=== PATIENT | male | born 1995 | race Caucasian/White ===

== ENCOUNTER 2018-03-16 19:15 | Day surgery (SDC) | payer BC ==
[2018-03-16] MEDS ORDERED: NS(*) 0.9% 1000 ML BAG 1,000 ML IV ONE (19:31)
[2018-03-16 19:49] LABS: PLATELET COUNT, AUTOMATED 222 K/uL (150-450)
--- NOTE | 2018-03-16 19:53 | ER Report ---
History and Physical Time Seen By MD: 19:27 Hx. of Stated Complaint: lower rt abdominal pain for a couple hours. started suddenly HPI/ROS CHIEF COMPLAINT: Abdominal pain HISTORY OF PRESENT ILLNESS: 22-year-old male patient presents to emergency room with complaint of abdominal pain. Patient states that he has been having pain for a few hours. He states pain is centered over the right lower quadrant. He states that standing up seems to make the pain worse. He states that he has not had any nausea, vomiting or diarrhea. Patient states he last ate about 2:00 this afternoon. Patient states he is not taking anything for the pain. He denies having any fevers or chills. Patient states he is had anything like this in the past. REVIEW OF SYSTEMS: Respiratory: No cough, no dyspnea. Cardiovascular: No chest pain, no palpitations. Gastrointestinal: As noted above Musculoskeletal: No back pain. Allergies: Coded Allergies: No Known Drug Allergies (Unverified , 03/16/18) Home Meds No Active Prescriptions or Reported Meds Past Medical/Surgical History Patient has a past medical history of left arm fracture, social alcohol use. Patient has surgical history of wisdom teeth removed. Reviewed Nurses Notes: Yes Hx Substance Use Disorder: No Hx Alcohol Use: Yes (social) Constitutional Vital Sign - Last 24 Hours 03/16/18 03/16/18 03/16/18 03/16/18 19:20 19:25 19:30 19:45 Temp 98.1 Pulse 64 72 66 Resp 14 B/P (MAP) 149/105 149/105 (120) 148/104 (119) Pulse Ox 95 99 97 O2 Delivery Room Air 03/16/18 20:00 Pulse 63 B/P (MAP) 133/88 (103) Pulse Ox 97 Physical Exam General Appearance: The patient is alert, has no immediate need for airway protection and no current signs of toxicity. ENT: Tympanic membranes are pearly-mcnamara, auditory canals are patent, mucus mucous membranes are moist. Respiratory: Chest is non tender, lungs are clear to auscultation. Cardiac: regular rate and rhythm Gastrointestinal: Abdomen is soft and tender in the right lower quadrant, no masses, bowel sounds normal. Musculoskeletal: Neck: Neck is supple and non tender. Extremities have full range of motion and are non tender. Skin: No rashes or lesions. DIFFERENTIAL DIAGNOSIS: After history and physical exam differential diagnosis was considered for abdominal pain including but not limited to appendicitis, cholecystitis, gastritis and urinary tract infection. Medical Decision Making Data Points Result Diagram: 03/16/18193503/16/181935 Laboratory Hematology Test 03/16/18 19:21 03/16/18 19:36 Urine Color Yellow Urine Clarity Clear Urine pH 5.0 pH (4.8-9.5) Urine Specific [place] 1.026 Urine Protein Negative mg/dL (NEGATIVE) Urine Glucose (UA) Negative mg/dL (NEGATIVE) Urine Ketones Negative mg/dL (NEGATIVE) Urine Blood Negative (NEGATIVE) Urine Nitrite Negative (NEGATIVE) Urine Bilirubin Negative (NEGATIVE) Urine Urobilinogen 2.0 mg/dL (0.2-1.9) Urine Leukocyte Esterase Negative (NEGATIVE) Urine RBC <1 /HPF (0-2/HPF) Urine WBC 1 /HPF (0-5/HPF) Urine Squamous Epithelial Cells None /LPF (</=FEW) Urine Bacteria Negative /HPF (NONE-FEW) Urine Mucus None /HPF (NONE-FEW) Red Blood Count 6.08 M/uL (4.00-5.60) Mean Corpuscular Volume 86.9 fL (80.0-96.0) Mean Corpuscular Hemoglobin 30.1 pg (26.0-33.0) Mean Corpuscular Hemoglobin Concent 34.6 g/dL (32.0-36.0) Red Cell Distribution Width 12.5 % (11.5-14.5) Mean Platelet Volume 10.0 fL (7.2-11.1) Neutrophils (%) (Auto) 76.2 % (39.4-72.5) Lymphocytes (%) (Auto) 17.1 % (17.6-49.6) Monocytes (%) (Auto) 5.1 % (4.1-12.4) Eosinophils (%) (Auto) 1.2 % (0.4-6.7) Basophils (%) (Auto) 0.4 % (0.3-1.4) Nucleated RBC Relative Count (auto) 0.1 /100WBC Neutrophils # (Auto) 12.0 K/uL (2.0-7.4) Lymphocytes # (Auto) 2.7 K/uL (1.3-3.6) Monocytes # (Auto) 0.8 K/uL (0.3-1.0) Eosinophils # (Auto) 0.2 K/uL (0.0-0.5) Basophils # (Auto) 0.1 K/uL (0.0-0.1) Nucleated RBC Absolute Count (auto) 0.01 K/uL Sodium Level 139 mmol/L (137-145) Potassium Level 3.8 mmol/L (3.5-5.0) Chloride Level 100 mmol/L (98-107) Carbon Dioxide Level 25 mmol/L (22-30) Blood Urea Nitrogen 19 mg/dl (9-21) Creatinine 0.90 mg/dl (0.66-1.25) Glomerular Filtration Rate Calc > 60.0 Random Glucose 103 mg/dl (75-110) Calcium Level 9.5 mg/dl (8.4-10.2) Total Bilirubin 0.5 mg/dl (0.2-1.3) Aspartate Amino Transf (AST/SGOT) 25 U/L (0-35) Alanine Aminotransferase (ALT/SGPT) 32 U/L (0-56) Alkaline Phosphatase 72 U/L (0-126) C-Reactive Protein < 0.5 mg/dl (<1.0) Total Protein 8.0 g/dl (6.3-8.2) Albumin 4.7 g/dl (3.5-5.0) Amylase Level 66 U/L (0-110) Lipase 53 U/L (23-300) Chemistry Test 03/16/18 19:21 03/16/18 19:36 Urine Color Yellow Urine Clarity Clear Urine pH 5.0 pH (4.8-9.5) Urine Specific [place] 1.026 Urine Protein Negative mg/dL (NEGATIVE) Urine Glucose (UA) Negative mg/dL (NEGATIVE) Urine Ketones Negative mg/dL (NEGATIVE) Urine Blood Negative (NEGATIVE) Urine Nitrite Negative (NEGATIVE) Urine Bilirubin Negative (NEGATIVE) Urine Urobilinogen 2.0 mg/dL (0.2-1.9) Urine Leukocyte Esterase Negative (NEGATIVE) Urine RBC <1 /HPF (0-2/HPF) Urine WBC 1 /HPF (0-5/HPF) Urine Squamous Epithelial Cells None /LPF (</=FEW) Urine Bacteria Negative /HPF (NONE-FEW) Urine Mucus None /HPF (NONE-FEW) White Blood Count 15.8 k/uL (4.5-11.0) Red Blood Count 6.08 M/uL (4.00-5.60) Hemoglobin 18.3 g/dL (14.0-18.0) Hematocrit 52.8 % (42.0-52.0) Mean Corpuscular Volume 86.9 fL (80.0-96.0) Mean Corpuscular Hemoglobin 30.1 pg (26.0-33.0) Mean Corpuscular Hemoglobin Concent 34.6 g/dL (32.0-36.0) Red Cell Distribution Width 12.5 % (11.5-14.5) Platelet Count 222 K/uL (150-450) Mean Platelet Volume 10.0 fL (7.2-11.1) Neutrophils (%) (Auto) 76.2 % (39.4-72.5) Lymphocytes (%) (Auto) 17.1 % (17.6-49.6) Monocytes (%) (Auto) 5.1 % (4.1-12.4) Eosinophils (%) (Auto) 1.2 % (0.4-6.7) Basophils (%) (Auto) 0.4 % (0.3-1.4) Nucleated RBC Relative Count (auto) 0.1 /100WBC Neutrophils # (Auto) 12.0 K/uL (2.0-7.4) Lymphocytes # (Auto) 2.7 K/uL (1.3-3.6) Monocytes # (Auto) 0.8 K/uL (0.3-1.0) Eosinophils # (Auto) 0.2 K/uL (0.0-0.5) Basophils # (Auto) 0.1 K/uL (0.0-0.1) Nucleated RBC Absolute Count (auto) 0.01 K/uL Glomerular Filtration Rate Calc > 60.0 Calcium Level 9.5 mg/dl (8.4-10.2) Total Bilirubin 0.5 mg/dl (0.2-1.3) Aspartate Amino Transf (AST/SGOT) 25 U/L (0-35) Alanine Aminotransferase (ALT/SGPT) 32 U/L (0-56) Alkaline Phosphatase 72 U/L (0-126) C-Reactive Protein < 0.5 mg/dl (<1.0) Total Protein 8.0 g/dl (6.3-8.2) Albumin 4.7 g/dl (3.5-5.0) Amylase Level 66 U/L (0-110) Lipase 53 U/L (23-300) Urinalysis Test 03/16/18 19:21 Urine Color Yellow Urine Clarity Clear Urine pH 5.0 pH (4.8-9.5) Urine Specific [place] 1.026 Urine Protein Negative mg/dL (NEGATIVE) Urine Glucose (UA) Negative mg/dL (NEGATIVE) Urine Ketones Negative mg/dL (NEGATIVE) Urine Blood Negative (NEGATIVE) Urine Nitrite Negative (NEGATIVE) Urine Bilirubin Negative (NEGATIVE) Urine Urobilinogen 2.0 mg/dL (0.2-1.9) Urine Leukocyte Esterase Negative (NEGATIVE) Urine RBC <1 /HPF (0-2/HPF) Urine WBC 1 /HPF (0-5/HPF) Urine Squamous Epithelial Cells None /LPF (</=FEW) Urine Bacteria Negative /HPF (NONE-FEW) Urine Mucus None /HPF (NONE-FEW) EKG/Imaging Imaging COMPUTED TOMOGRAPHY OF THE Abdomen and Pelvis with CONTRAST INDICATION: Right lower quadrant pain. TECHNIQUE: Contiguous axial 3.[address] images were obtained through the abdomen and pelvis after 75 mL Isovue-370. Coronal and sagittal reformatted images were submitted. COMPARISON: None. FINDINGS: Lung bases: Clear Liver and hepatic vasculature: No focal lesion. Gallbladder and bile ducts: Normal Spleen: Normal Pancreas: Normal Adrenals: Normal Kidneys, ureters and bladder: No stones or obstruction. Retroperitoneum and aorta: No GI tract, mesentery and peritoneum: The appendix measures approximately 9 mm in diameter with mild surrounding inflammation, especially near the appendiceal tip (series 2 image 106). The appendiceal wall is edematous. There is no perforation or abscess. The appendix extends inferiorly from the cecum from an lies just anterior to the external iliac artery. Prostate: Unremarkable Bones and soft tissues: No acute osseous abnormality. IMPRESSION: 9 mm, thick-walled appendix with stranding adjacent to the appendiceal tip. Findings are in keeping with early uncomplicated appendicitis. Results were called to Dr. DELMAR LIRIANO at 03/16/2018 8:47 PM. One of the following dose optimization techniques was utilized in the performance of this exam: Automated exposure control; adjustment of the mA and/or kV according to the patient's size; or use of an iterative reconstruction technique. Specific details can be referenced in the facility's radiology CT exam operational policy. Report Dictated By: Tae Arguello MD at 03/16/2018 8:36 PM Report E-Signed By: Tae Arguello MD at 03/16/2018 8:49 PM ED Course/Re-evaluation ED Course Patient was admitted in exam room, history and physical were obtained. Differential diagnoses were considered. On examination lungs are clear, heart is regular, abdomen is soft and tender in the right lower quadrant. Patient had p ain in the right lower quadrant with palpation of the left lower quadrant. An IV was started, patient received a liter of normal saline, a CBC, CMP, urinalysis were obtained. The labs showed a white count of 15,800 with a left shift. CT scan of the abdomen and pelvis was done which showed an acute appendicitis without perforation. I discussed the findings with the patient and his significant other. We did call and talk with the general surgeon, Dr. Monge, who came and evaluated the patient and they opted to go to surgery and remove the appendix. Dr. Monge requested that we start the patient on Levaquin and Flagyl. Those were ordered prior to surgery. Decision to Disposition Date: Mar 16, 2018 Decision to Disposition Time: 21:37 Depart Departure Latest Vital Signs Vital Signs Date Time Temp Pulse Resp B/P (MAP) Pulse Ox O2 Delivery O2 Flow Rate FiO2 03/16/18 20:00 63 133/88 (103) 97 03/16/18 19:20 98.1 14 Room Air Impression: Primary Impression: Appendicitis Condition: Condition Unchanged Disposition: ADMIT FROM ER TO OR New Scripts No Active Prescriptions or Reported Meds Problem Qualifiers Primary Impression: Appendicitis Appendicitis type: acute appendicitis Acute appendicitis type: with localized peritonitis Appendicitis gangrene presence: without gangrene Appendicitis perforation presence: without perforation Appendicitis abscess presence: without abscess Qualified Codes: K35.30 - Acute appendicitis with localized peritonitis, without perforation or gangrene DELMAR LIRIANO Mar 16, 2018 19:52
[2018-03-16] MEDS ORDERED: IOPAMIDOL 76% 75 ML INFUS BTL 75 ML ONE (20:23)
--- NOTE | 2018-03-16 20:53 | RADIOLOGY IMAGING REPORT ---
FAC[place] [facility] [place] NAME: Freddy Lei : 1995 MR: [id number] V: [id number] EXAM DATE: ORDERING PHYSICIAN: DELMAR LIRIANO TECHNOLOGIST: Location: [facility] Patient: Freddy Lei : 1995 Visit/Account:[id number] Date of Sevice: 03/16/2018 COMPUTED TOMOGRAPHY OF THE Abdomen and Pelvis with CONTRAST INDICATION: Right lower quadrant pain. TECHNIQUE: Contiguous axial 3.[address] images were obtained through the abdomen and pelvis after 75 m L Isovue-370. Coronal and sagittal reformatted images were submitted. COMPARISON: None. FINDINGS: Lung bases: Clear Liver and hepatic vasculature: No focal lesion. Gallbladder and bile ducts: Normal Spleen: Normal Pancreas: Normal Adrenals: Normal Kidneys, ureters and bladder: No stones or obstruction. Retroperitoneum and aorta: No GI tract, mesentery and peritoneum: The appendix measures approximately 9 mm in diameter with mild reese rrounding inflammation, especially near the appendiceal tip (series 2 image 106). The appendiceal wa ll is edematous. There is no perforation or abscess. The appendix extends inferiorly from the cecum from an lies just anterior to the external iliac artery. Prostate: Unremarkable Bones and soft tissues: No acute osseous abnormality. IMPRESSION: 9 mm, thick-walled appendix with stranding adjacent to the appendiceal tip. Findings are in keeping with early uncomplicated appendicitis. Results were called to Dr. DELMAR LIRIANO at 03/16/2018 8:47 PM. One of the following dose optimization techniques was utilized in the performance of this exam: Autom ated exposure control; adjustment of the mA and/or kV according to the patient's size; or use of an i terative reconstruction technique. Specific details can be referenced in the facility's radiology C T exam operational policy. Report Dictated By: Tae Arguello MD at 03/16/2018 8:36 PM Report E-Signed By: Tae Arguello MD at 03/16/2018 8:49 PM [id number]
[2018-03-16] MEDS ORDERED: metroNIDAZOLE* 500MG/100ML BAG 100 ML IVPB ONE (21:00)
[2018-03-16] MEDS ORDERED: NORMOSOL R SOLN(*) 1000 ML BAG 1,000 ML IV ONE (21:05)
[2018-03-16] MEDS ORDERED: LEVOFLOXACIN/D5W*500 MG/100 ML 100 ML IVPB ONE (21:10)
[2018-03-16] MEDS ORDERED: LIDOCAINE MPF 1% 5 ML VIAL ONE (21:47)
[2018-03-16] MEDS ORDERED: ROCURONIUM BROM 10 MG/ML 10 ML ONE (21:47)
[2018-03-16] MEDS ORDERED: PROPOFOL EMUL(*) 10MG/ML 20 ML 20 ML ONE (21:47)
[2018-03-16] MEDS ORDERED: ONDANSETRON 4 MG/2 ML VIAL ONE (21:47)
[2018-03-16] MEDS ORDERED: fentaNYL CITR 100 MCG/2 ML AMP ONE ×2 (21:48→23:33)
[2018-03-16] MEDS ORDERED: PHENYLEPHRINE/NS/PF 0.4MG/10ML ONE (21:48)
[2018-03-16] MEDS ORDERED: DEXAMETHASONE SOD 4 MG/ML VIAL ONE (21:48)
[2018-03-16] MEDS ORDERED: KETAMINE HCL-NS 50 MG/5 ML SYR ONE (21:51)
[2018-03-16 22:00] VITALS: BP 132/90
[2018-03-16] MEDS ORDERED: SUGAMMADEX SOD 500 MG/5 ML SDV ONE (22:56)
[2018-03-16] MEDS ORDERED: KETOROLAC 30 MG/ML VIAL ONE (22:58)
[2018-03-16] MEDS ORDERED: SENN8.6T35 PO (23:29)
[2018-03-16] MEDS ORDERED: MEPERIDINE 50 MG/ML SYR ONE (23:29)
[2018-03-16] MEDS ORDERED: DOCU-416 PO (23:29)
[2018-03-16] MEDS ORDERED: HYDR-385 PO (23:29)
--- NOTE | 2018-03-16 23:32 | Short(Outpt) Discharge Summary ---
Discharge Summary Departure Discharge to: Home, Self Care Discharge Instructions Home Meds Active Scripts Docusate Sodium (COLACE) 100 Mg Capsule, 100 MG PO BID PRN for CONSTIPATION for 7 Days, #14 CAPSULE Prov:LINDA LANDRY MD 03/16/18 Sennosides (SENNA) 8.6 Mg Tablet, 8.6 MG PO BID PRN for CONSTIPATION for 7 Days, #14 TAB Prov:LINDA LANDRY MD 03/16/18 Hydrocodone Bit/Acetaminophen (HYDROCODON-ACETAMINOPHEN 5-325) 1 Each Tablet, 1 EACH PO Q6H for 5 Days, #20 TAB 0 Refills Prov:LINDA LANDRY MD 03/16/18 Diet: Regular Activity: No Heavy Lifting Special Instructions: Limit lifting to 20 pounds or less for a total of 4 weeks from the date of your operation or until cleared at your follow up appointment. You may shower on 03/17/18, please do not scrub incisions, pat dry. You may use Tylenol and/or ibuprofen for pain. Stop narcotics as soon as pain is easily managed. LINDA LANDRY MD Mar 16, 2018 23:32
--- NOTE | 2018-03-16 23:43 | Gen Surgery History & Physical ---
History of Present Illness Chief Complaint Abdominal pain History of Present Illness Patient is a healthy 22 year old male who presents with approximately 4 hours of acute onset abdominal pain. The patient reports he was at his baseline of good h ealth until he had the acute onset of poorly localized abdominal pain. Over the course of the first several hours of pain the location of the pain migrated to the right lower quadrant. His pain was worsened by movement and palpation of the abdomen. He had minor nausea but no vomiting. He denies any fevers or chills. He reports diarrhea earlier in the day. He denies any other associated symptoms. He has had no sick contacts. He ultimately presented to the [facility] Emergency Department for evaluation where a CT scan demonstrated a fluid filled, dilated appendix with marquita-appendiceal fat stranding. History Home Meds Active Scripts Docusate Sodium (COLACE) 100 Mg Capsule, 100 MG PO BID PRN for CONSTIPATION for 7 Days, #14 CAPSULE Prov:LINDA LANDRY MD 03/16/18 Sennosides (SENNA) 8.6 Mg Tablet, 8.6 MG PO BID PRN for CONSTIPATION for 7 Days, #14 TAB Prov:LINDA LANDRY MD 03/16/18 Hydrocodone Bit/Acetaminophen (HYDROCODON-ACETAMINOPHEN 5-325) 1 Each Tablet, 1 EACH PO Q6H for 5 Days, #20 TAB 0 Refills Prov:LINDA LANDRY MD 03/16/18 Allergies: Coded Allergies: No Known Drug Allergies (Unverified , 03/16/18) Patient History: Patient reports no known family medical history. Review of Systems Constitutional: No Fever, No Weight Loss, No Weight Gain, No Chills, No Night Sweats, No Other Neurological: No Syncope, No Confusion, No Weakness, No Dizziness, No Slurred Speech, No Other Cardiovascular: No Chest Pain, No Palpitations, No Orthostatic Hypotension, No Other Respiratory: No Shortness of Breath, No Cough, No Wheezing, No Other Gastrointestinal: Nausea, Diarrhea, Abdominal Pain Genitourinary: No Dysuria, No Hematuria, No Urinary Incontinence, No Other Musculoskeletal: No Pain, No Sprain, No Strain, No Impaired Mobility, No Other Exam General Appearance: Alert, Awake, No Acute Distress Neuro: No Gross deficits Eyes: PERRLA ENT: Moist Mucous Membranes Cardiovascular: Normal Rhythm & Peripheral Pulses, Regular Rate and Rhythm Respiratory: No Respiratory Distress, Clear to Auscultation GI: Other (Soft, non-distended. Tender to palpation in the right lower quadrant at McBurney's point. Positive Rovsing's sign. No palpable masses. No rebound tenderness or guarding.) Extremities: Soft and Non Tender, Warm Integumentary: Skin Intact without Lesion / Mass Medical Decision Making Data Points Result Diagram: 03/16/18193503/16/181935 Assessment and Plan Problems: (1) Appendicitis Onset Date: ~ 03/16/2018 Status: Acute Assessment & Plan: Patient with signs and symptoms; as well as CT scan consistent with early acute appendicitis. I have discussed the pathophysiology and both operative and non-operative treatment options for this condition. I have recommended a laparoscopic appendectomy with the patient. We have discuss ed the risks and benefits of this procedure, including but not limited to: iatrogenic injury to bowel / bladder / blood vessels, bleeding, infection of skin or subcutaneous tissues, stump appendicitis, need for additional procedures. The patient wishes to proceed. We will proceed to the operating room for urgent appendectomy. Make patient NPO now. Start IV antibiotics with levofloxacin and metronidazole. Possible DC to home following operation. Time Spent: > 30 min Venous Thromboembolism VTE Risk Patient's VTE Risk: Low VTE Diagnostic Test 2 Days Prior to Admit: No Antithrombotics Is Pt On Any Antithrombotics?: Yes Prophylaxis Tx Contraindicated Pharmacological Contraindicati: Pt at Low Risk for VTE Problem Qualifiers (1) Appendicitis: Appendicitis type: acute appendicitis Acute appendicitis type: with localized peritonitis Appendicitis gangrene presence: without gangrene Appendicitis perforation presence: without perforation Appendicitis abscess presence: without abscess Qualified Codes: K35.30 - Acute appendicitis with localized peritonitis, without perforation or gangrene LINDA LANDRY MD Mar 16, 2018 23:43
--- NOTE | 2018-03-16 23:58 | Post Operative Note ---
Operative Note - ENT Operative Day Date: Mar 16, 2018 Time: 22:10 Physicians Surgeon: Linda Landry M.D. Diagnosis Pre-Op Diagnosis: Acute appendicitis with localized peritonitis Post-Op Diagnosis: Acute uncomplicated appendicitis Procedure Findings: Appendix with injection and dilation. No evidence of mural necrosis, perforation or purulent discharge. Procedure(s): Laparoscopic appendectomy Description of procedure: After obtaining informed consent the patient was brought to the operating suite and laid in a supine position on the table. Appropriate lines and monitors were placed. The patient was secured to the operating room table with attention paid to adequate padding of bony prominences. Preoperative antibiotics were administered. The patient was then smoothly induced with a general anesthetic and intubated via an orotracheal route. The abdomen was then prepped and draped in the usual sterile fashion. Prior to the formal start of the procedure a preoperative pause was conducted in which the patient's identity was confirmed with two separate identifiers, the planned procedure, safety measures and preoperative antibiotics were discussed. The operation was then begun by making a curvilinear incision in the infraumbilical space. The incision was deepened into the subcutaneous tissues sharply. The subcutaneous tissues were bluntly dissected down to the anterior fascia. This was then sharply incised and the peritoneum was entered under direct vision using Enrike technique. Interrupted 0 Vicryl sutures were placed in the incision and a 12 mm trocar was inserted. The abdomen was then insufflated to a steady pressure of 15 mmHg and a laparoscope was introduced. The abdomen was inspected with the findings noted above. Additional 5mm trocars were then placed under direct vision in a suprapubic and left lower quadrant location. The patient was placed head down, the bowel was swept cephalad and the appendix was elevated off the surrounding small bowel. A window in the base of the mesoappendix was created bluntly. An EndoGIA stapler was then introduced into the abdomen and the appendix was amputated off of the cecum with a minimal stump with a single firing using a blue load. The mesoappendix was then tented upward and divided with an additional firing of the EndoGIA with a white load. There was minor bleeding from the mesoappendix staple line which was controlled with clip application. The staple lines were then inspected and found to be hemostatic. The right lower quadrant was then lightly irrigated with sterile saline and suctioned free of all instillate. The appendix was then placed in a retrieval pouch and removed via the infraumbilical incision. The additional 5mm ports were removed and the pneumoperitoneum was released. The infraumbilical fascial incision was then closed with the previously placed 0 Vicryl sutures. The subcutaneous tissues were approximated with a 3-0 Vicryl in a deep horizontal mattress suture. The skin at all incision sites was infiltrated with 0.25% bupivacaine. The skin incisions were closed with 4-0 Monocryl in a running subcuticular fasion and dressed with Dermabond dressing. The patient was then awakened from his general anesthetic, extubated and taken to the post-ansethesia care unit in stable condition. Specimen Removed:(Maybe N/A): Appendix Complications: None Fluids Fluids: See anesthesia record Estimated Blood Loss: Minimal LINDA LANDRY MD Mar 16, 2018 23:58
[2018-03-17] MEDS ORDERED: APAP/HYDROCODONE 325/5 TAB ONE (00:10)
[2018-03-17] MEDS ORDERED: ACET/HYDROC 5/325MG TH ER ONLY 2 TAB/BOTTLE ONE (00:16)
== END 2018-03-17 00:35 | disposition home or self-care (01) ==
LOC: ER 19:54 → OR 21:14
PROVIDERS: ATTEND Surgery Surgical Critical Care
DX: K35.80 Unspecified acute appendicitis (principal)
CPT/HCPCS: 44970; 74177; 81001; 82150; 83690; 85025; 86140; 88304; 96361; 96365; 96368; 99284; J1100; J1885; J1956; J2001; J2175; J2405; J2704; J3010; J3490; J7030; Q9967; 82040; 82247; 82310; 82374; 82435; 82565; 82947; 84075; 84132; 84155; 84295; 84450; 84460; 84520; J2370